=== PATIENT | female | born 1955 | race Caucasian/White ===

== ENCOUNTER 2024-04-01 13:20 | Emergency (ER) | payer MEDICARE, BC, SELFPAY ==
[2024-04-01 13:22] VITALS: BP 147/76
[2024-04-01 14:00] VITALS: BP 118/74; BMI 20.7
--- NOTE | 2024-04-01 14:32 | ED.MUSCINJ ---
HPI-Injury
General
Chief Complaint: Extremity Pain (non-traumatic)
Source: patient
Exam Limitations: none
Time Seen by Provider: 04/01/24 14:05
Nursing documentation reviewed up to this point in time: agreed with
Travel History
Have you had any contact with someone who has COVID-19?: No
Do you have any symptoms of coronavirus? Fever > 100 degrees, chills, cough, shortness of breath, sore throat, loss of taste or smell, muscle aches, or headache?: No
History of Present Illness-Injury
Initial Injury comments:
68 yo female was sitting at lunch about and hour ago when she developed sudden onset 7/10 posterior right shoulder pain, took Ibuprofen 600 mg and applied ice and it is now 3/10. She works out at gym 5 days a week, did an exceptionally hard [employer] workout 2 days ago. No points to posterior and lateral deltoid to locate pain site .
She started herself on Prilosec two days ago for 'sporadic heartburn' she's had over the past 2 months. She denies chest pain, n/v, lightheadedness, palpitations, or SOB.
Had workup with PCP with normal labs one week ago.
Takes Lamotrigine since 2018 for seizure and had been seizure free since
Past History
Past History
ED Past Medical History: Seizures (takes Lamotrigine) and Psychiatric (Depression, takes Lexapro)
ED Past Surgical History: and Orthopedic (Left knee surgery)
Social History
Tobacco: Non-smoker
Alcohol: Occasional
Drug: None
Personal:
Living: with family
Employment: Employed
Review of Systems
Review of Systems
Allergies reviewed?: Yes
All Other Systems: ROS reviewed and negative except as documented in HPI and ROS
Respiratory: Denies trouble breathing
Cardiac: Denies chest pain
ABD/GI: Denies abdominal pain or nausea
Musculoskeletal: Reports other (right shoulder pain improving)
Skin: Reports no symptoms
Neurological: Denies weakness or numbness
Phy Exam
Physical Exam
Physical Exam:
GENERAL: No acute distress. A&Ox3.
CONSTITUTIONAL: Afebrile.
RESPIRATORY: Regular respirations, nonlabored, lungs clear.
CARDIOVASCULAR: Regular rate and rhythm, no murmurs, no rubs.
GI: Soft, nontender
MUSCULOSKELETAL: Mild tenderness right mid to lower deltoid. Full ROM. Palpation immediately reproduces the pain. Moves with ease. Well perfused.
SKIN: Warm, dry, pink
PSYCH: Normal mood and affect. Well kept, interactive and appropriate
NEUROLOGIC: Awake, alert and oriented. No focal neurological deficits
Injury Course
Orders/Labs/Results
Orders:
Orders
04/01/24 13:26
EKG [Electrocardiogram (*1)] Urgent
Reason for Study: Abdominal Pain
EKG- Treatment ONCE
04/01/24 14:31
Shoulder, Right, Trauma [CR Shoulder, Trauma - Right] Urgent
Comment:
Reason For Exam: sudden onset pain, does work out daily
MDM/Problems Addressed
Differential Diagnosis Includes:
musculoskeletal pain, bursitis, calcific bursitis, tendinitis
MDM/Problems Addressed:
68 yo female was sitting at lunch about and hour ago when she developed sudden onset 7/10 posterior right shoulder pain, took Ibuprofen 600 mg and applied ice and it is now 3/10. She works out at gym 5 days a week, did an exceptionally hard [employer] workout 2 days ago. No points to posterior and lateral deltoid to locate pain site .
She started herself on Prilosec two days ago for 'sporadic heartburn' she's had over the past 2 months. She denies chest pain, n/v, lightheadedness, palpitations, or SOB.
Had workup with PCP with normal labs one week ago.
Takes Lamotrigine since 2018 for seizure and had been seizure free since
EKG: NSR
Very low suspicion for cardiac etiology, no chest pain presently, heartburn has been sporadic over months, recommended Troponin for completeness but pt declines as she just had blood work last week (she understands reason for troponin).
Case discussed with Dr. Cruz who reviewed EKG and agrees any abnormality is due to lead placement.
Xray right shoulder initially read by this examiner: No abnormality
Pt feeling much better. Stable for discharge
*Critical Care Note
Total Time (30-74mins, 75-104mins- exclusive of procedures): Not Applicable
ED Attending Note
-
Portions of this chart may have been created with voice recognition software.� Occasional wrong word or��sound alike� substitutions may have occurred due to the inherent limitations of voice recognition software.
Discharge Plan
Departure
Patient Disposition: Home (Routine Discharge)
Date of Disposition: 04/01/24
Time of Disposition: 15:14
Patient with high blood pressure during this ER visit?: No
Condition: Good
Discharge Problem:
Acute pain of right shoulder
Instructions: Muscle and Bone Pain (DC)
Prescriptions:
No Action
escitalopram oxalate 10 MG tablet
10 mg PO HS
lamotrigine 100 MG tablet
200 mg PO BID
epinephrine [EpiPen] 0.3 MG/0.3/SYRINGE auto-injector
0.3 mg IM .STAT PRN (Reason: severe allergic reaction) Qty: 2 0RF
multivitamin Tablet
1 tab PO DAILY
omeprazole magnesium [Prilosec OTC] 20 mg Tablet,Delayed Release (Dr/Ec)
20 mg PO DAILY
vitamin B51-pxrfx acid
1 tab PO DAILY
Referrals:
Lawrence Tomlin MD [Active] - As needed
Nayely Loomis DO [Family Provider] -
Activity Restrictions/Additional Instructions:
As we discussed, no calcific bursitis, this was most likely a muscle spasm. Your EKG shows nothing worrisome.
Avoid stressing the right arm until completely pain free. Ibuprofen as needed for pain
See your orthopedic doctor if it continues to bother you.
Interventions
Interventions:
*Risk Screen - Suicide Last Done: 04/01/24 14:00
*General Assessment Last Done: 04/01/24 13:22
*Neglect/Abuse Screening Last Done: 04/01/24 13:40
ED- Fall Risk Assessment Last Done: 04/01/24 14:00
*ED COVID-19 Vaccine History Last Done: 04/01/24 13:22
*Nursing Disposition Last Done: 04/01/24 15:23
ED-Skin Assessment Last Done: 04/01/24 14:00
ED-Peripheral Vascular Assessment Last Done: 04/01/24 14:00
ED-Musculoskeletal Assessment Last Done: 04/01/24 14:00
Discharge Date and Time
Discharge Date/Time: 04/01/24 15:24
Print Language: [id number]
[2024-04-01 15:00] VITALS: BP 125/74
== END 2024-04-01 15:24 | disposition home or self-care (01) ==
LOC: EMR 13:20
PROVIDERS: EMERGENCY PHYSICIAN Emergency Medicine; FAMILY PHYSICIAN Family Medicine
DX: M25.511 Pain in right shoulder (principal); K30 Functional dyspepsia; R56.9 Unspecified convulsions; F32.A Depression, unspecified; M19.90 Unspecified osteoarthritis, unspecified site; Z79.899 Other long term (current) drug therapy; Z88.1 Allergy status to other antibiotic agents; Z88.0 Allergy status to penicillin
CPT/HCPCS: 99283; 73030; 93005

== ENCOUNTER → 2024-05-21 11:59 | Day surgery (SDC) | payer MEDICARE, BC, SELFPAY | LOC: GI 11:59 | PROVIDERS: ATTENDING PHYSICIAN Internal Medicine Gastroenterology | DX: K22.2 Esophageal obstruction (principal); K44.9 Diaphragmatic hernia without obstruction or gangrene; R13.10 Dysphagia, unspecified; K29.50 Unspecified chronic gastritis without bleeding | CPT/HCPCS: 43249; 88305; 88342 ==

== ENCOUNTER → 2024-07-14 10:59 | Outpatient (REF) | payer MEDICARE, BC, SELFPAY | LOC: MRI 3T 10:59 | PROVIDERS: ATTENDING PHYSICIAN Pain Medicine Interventional Pain Medicine; FAMILY PHYSICIAN Family Medicine | DX: M54.16 Radiculopathy, lumbar region (principal) | CPT/HCPCS: 72148 ==

== ENCOUNTER → 2024-10-03 12:20 | Outpatient (REF) | payer MEDICARE, BC, SELFPAY | LOC: WDC 12:20 | PROVIDERS: ATTENDING PHYSICIAN Obstetrics & Gynecology Gynecology; FAMILY PHYSICIAN Family Medicine | DX: Z12.31 Encounter for screening mammogram for malignant neoplasm of breast (principal) | CPT/HCPCS: 77063; 77067 ==

== ENCOUNTER → 2025-05-02 08:54 | Outpatient (REF) | payer MEDICARE, BC, SELFPAY | LOC: EMG 08:54 | PROVIDERS: ATTENDING PHYSICIAN Orthopaedic Surgery Hand Surgery; FAMILY PHYSICIAN Family Medicine | DX: M79.641 Pain in right hand (principal); M79.642 Pain in left hand; R20.0 Anesthesia of skin; G56.03 Carpal tunnel syndrome, bilateral upper limbs | CPT/HCPCS: 95886; 95911 ==

== ENCOUNTER → 2025-05-13 08:03 | Outpatient (REF) | payer MEDICARE, BC, SELFPAY ==
[2025-05-13 09:01] LABS: Hematocrit 39.2 % (37.0-47.0); Hemoglobin 13.3 g/dL (12.0-16.0); Mean Corp Hgb Conc. 33.9 g/dL (33.0-37.0); Mean Corpuscular Volume 97.5 fL (81.0-99.0); Nucleated Red Blood Cells % 0 %; Platelet Count 282 10^3/uL (130-400); Red Cell Dist. Width 13.2 % (11.5-14.5)
[2025-05-13 09:52] LABS: Blood Urea Nitrogen 11 mg/dl (7-17); Calcium 9.6 mg/dl (8.4-10.2); Carbon Dioxide 28 mmol/L (22-30); Chloride 105 mmol/L (98-107); Glucose 95 mg/dl (70-99); Potassium 4.6 mmol/L (3.5-5.1); Sodium 136 mmol/L (135-145); eGFR > 60.00
== END ==
LOC: REG 08:03
PROVIDERS: ATTENDING PHYSICIAN Orthopaedic Surgery Hand Surgery; FAMILY PHYSICIAN Family Medicine
DX: Z01.818 Encounter for other preprocedural examination (principal)
CPT/HCPCS: 36415; 80048; 85025; 93005

== ENCOUNTER → 2025-07-15 10:23 | Outpatient (REF) | payer MEDICARE, BC, SELFPAY | LOC: RAD 10:23 | PROVIDERS: ATTENDING PHYSICIAN Internal Medicine Gastroenterology; FAMILY PHYSICIAN Family Medicine | DX: R13.10 Dysphagia, unspecified (principal) | CPT/HCPCS: 74246 ==